=== PATIENT | female | born 1950 | race Caucasian/White ===

== ENCOUNTER → 2017-08-05 | Outpatient (CLI) | payer OTHER ==
[~2017-08-05] MED LIST: CALC-440 PO; CLB200 PO; CLR10 PO; FLUT0.15 NAE; FRRG PO; HYDR-5688 PO; HYDR25TA4 PO; LEVO88TA3 PO; LOSA1TAB PO; PEDICHW50 PO; RTL20 PO; TRIA0.1C55 TOP; XRL10 PO
--- NOTE | 2017-08-05 15:06 | DIAGNOSTIC IMAGING REPORT ---
MRI OF THE LEFT ANKLE AND HINDFOOT WITHOUT CONTRAST CLINICAL HISTORY: Left foot pain. Evaluate for posterior tibial tendon abnormality. No recent trauma. COMPARISON STUDY: Left foot radiographs April 07, 2012. TECHNIQUE: Utilizing a 1.5 Tamy magnet and dedicated coil, multiplanar, multiecho imaging of the left ankle and hindfoot was performed without intravenous or intraarticular contrast. Large [id number]-yzcy coronal T1 and T2 sequences of the entire foot were also obtained. FINDINGS: Note is made of postsurgical findings consistent with fusion of the left first metatarsophalangeal joint. Expected postoperative findings are noted. There is no marrow edema or marrow replacement within the left ankle or hindfoot. Achilles tendon is unremarkable. There is mild plantar calcaneal spurring. There is no MRI evidence of plantar fasciitis. A marker was placed on the skin at site of maximal pain, overlying the plantar medial aspect of the left hindfoot. Talar dome is intact. Flexor, extensor and peroneal tendons are intact. Specifically, the posterior tibial tendon is intact. There is no evidence for significant tendinopathy. Intrinsic ligaments of the left ankle appear intact. No mass or fluid collection is identified. IMPRESSION: 1. No acute abnormality of the left ankle or hindfoot. No abnormality of the posterior tibial tendon. 2. Status post fusion of the left first metatarsophalangeal joint. Expected postoperative findings. Electronically signed by: Anup Nieves M.D. 08/05/2017 3:04 PM Dictated Date/Time: 08/05/2017 12:07 PM
== END | disposition home or self-care (01) ==
LOC: C.MRI 09:40
PROVIDERS: ATTEND Podiatrist Foot & Ankle Surgery
DX: M76.822 Posterior tibial tendinitis, left leg (principal); M66.862 Spontaneous rupture of other tendons, left lower leg; M66.861 Spontaneous rupture of other tendons, right lower leg

== ENCOUNTER 2020-01-05 09:26 | Inpatient (IN) ==
--- NOTE | 2019-12-26 08:09 | History & Physical Report ---
Date of Service December 26, 2019 Assessment & Plan (1) Primary osteoarthritis of right knee: Treatment options discussed. She has failed conservative therapy as above. She has done well with left knee replacement in the past. Risks, benefits and alternatives to surgery including but not limited to infection, DVT, pain, stiffness, need for revision surgery, damage to blood vessels, damage to nerves, PE, , were discussed with the patient and they wish to proceed. Plan will be for right total knee arthroplasty on 01/05/20 at [facility]. Will plan on aspirin 81mg BID x 30 days post operatively. She will plan on outpatient PT post discharge. We will use Prineo/dermabond dressing with stratafix suture for skin closure. All questions answered. History of Present Illness Chief Complaint: Right knee pain Primary Care Provider: Alberto Li MD Patient is a 69 year old female with HTN, ADHD, depression, hypothyroidism presents for ongoing right knee pain. She has past history of left knee replacement and has done well. She has failed conservative measures including antiinflammatories and cortisone injections. She has significant arthritic changes to her right knee. Pain is affecting her ability to carry our leisure activities. She would like to proceed with right TKA. She was originally scheduled for 11/17/19. however was cancelled due to a lung nodule found during preoperative testing. She has had further work up and has been cleared to proceed with her right knee replacement. Patient denies headaches, sweats, fevers, chills, double vision, blurred vision, cough, sore throat, dysphagia, chest pain, sob, wheezing, n/v/d/c, numbness, tingling, fatigue, urinary symptoms, mood disorders. ROS positive for right knee pain and stiffness. Allergies Allergy/AdvReac Type Severity Reaction Status Date / Time adhesive Allergy Unknown contact Verified 12/22/19 15:47 dermatitis nickel Allergy Unknown contact Verified 12/22/19 15:47 dermatitis diphenhydramine AdvReac Unknown worsens Verified 12/22/19 15:47 symptoms oxycodone AdvReac Unknown hallucinati Verified 12/22/19 15:47 ons Metals Allergy Unknown contact Uncoded 12/22/19 15:47 dermatitis Home Medications Home Medications Medication Instructions Recorded Confirmed Type calcium carbonate [Calcium 600] 1,260 mg PO QAM 12/06/19 02/20/20 History hydrochlorothiazide 25 mg PO QAM 10/07/19 12/22/19 History levothyroxine 88 mcg PO QAM 10/07/19 12/22/19 History loratadine [Claritin] 10 mg PO QAM 10/07/19 12/22/19 History losartan 25 mg PO QAM 10/07/19 12/22/19 History methylphenidate HCl [Ritalin] 20 mg PO QAM 10/07/19 12/22/19 History pediatric multivitamin 2 tab PO QAM 10/07/19 12/22/19 History [Flintstones Multivitamin] Past Med/Surg History Medical History ADD (attention deficit disorder) Cancer LUNG NODULES-UNDER OBSERVATION Cardiac murmur HX Depressed High blood pressure Hypothyroidism Migraine HX Obesity Osteoarthritis Psoriasis Surgical History History of anesthesia reaction "SLOW TO WAKE UP" History of arthroscopy of left shoulder History of arthroscopy of right shoulder History of colonoscopy History of foot surgery L X4, R X3 History of gastric bypass WITH CHOLECYSTECTOMY AT SAME TIME History of hand surgery L SMALL BONE OUT AND CARPAL TUNNEL (SAME SURGERY) History of tonsillectomy History of total left knee replacement History of tubal ligation Social History Preferred Language: [place] Communication Ability: Effective Blood Splatter Analyst Required: No Beliefs That Will Affect Care: None Current Living Situation: Spouse and Family Other Information That Helps Us Care for You: No Feels Safe at Home: Yes Safety Concerns: Feels Safe At This Time Smoking Status: Never smoker Do You Dip or Chew Tobacco: No ; Second Hand Exposure: Yes (PARENTS SMOKED) ; Hx Alcohol Use: No Hx Substance Use: No Review of Systems All systems reviewed & are unremarkable except as noted in HPI & below Physical Exam Constitutional: well developed and well nourished; no acute distress Eyes: PERRL, conjunctivae normal, anicteric sclerae ENMT: external ear and nose normal, oropharynx normal Neck: trachea midline, no thyromegaly Respiratory: normal respiratory effort, lungs clear to auscultation Cardiovascular: RRR, no murmur, no edema Musculoskeletal: Right knee: ROM 0-125, mild effusion. Stable to valgus and varus stress tests. Positive Ericka's. Medial joint line tenderness Skin: no rashes, warm and dry Neurologic: patellar DTR's 2+ bilat, sensation intact Psychiatric: A+Ox3, euthymic affect Results & Data Vital Signs (Past 12 Hours) 5'4", 178lbs, BMI of 30.5. BP 130/62 Laboratory Results Right knee: Soky-da-mjlo medial compartment and lateral patellofemoral joint. Periarticular osteophyte formation and subchondral sclerosis. Degenerative changes lateral compartment.
[2019-12-26 10:06] LABS: Basophils # (auto) 0.05 K/uL (0-0.2); Basophils % (auto) 0.9 %; Eosinophils # (auto) 0.06 K/uL (0-0.5); Eosinophils % (auto) 1.1 %; Hematocrit (blood only) 42.5 % (37-47); Hemoglobin 13.9 g/dL (12.0-16.0); Immature Granulocytes # (auto) 0.01 K/uL (0.00-0.02); Immature Granulocytes % (auto) 0.2 %; Lymphocytes # (auto) 1.39 K/uL (1.2-3.4); Lymphocytes % (auto) 24.8 %; Mean Corpuscular Hemoglobin 30.3 pg (25-34); Mean Corpuscular Hgb Conc 32.7 g/dL (32-36); Mean Corpuscular Volume 92.6 fL (80-100); Mean Platelet Volume 11.7 fL (7.4-10.4); Monocytes # (auto) 0.43 K/uL (0.11-0.59); Monocytes % (auto) 7.7 %; Neutrophils # (auto) 3.66 K/uL (1.4-6.5); Neutrophils % (auto) 65.3 %; Platelet Count 289 K/uL (130-400); RDW Standard Deviation 43.5 fL (36.4-46.3); Red Blood Count 4.59 M/uL (4.2-5.4)
[2019-12-26 10:19] LABS: Partial Thromboplastin Time 26.5 Seconds (21.0-31.0)
[2019-12-26 10:39] LABS: Appearance Urine Clear (Clear); Bilirubin Urine Negative (Negative); Blood Urine Negative (Negative); Carbon Dioxide 32 mmol/L (21-32); Chloride 103 mmol/L (98-107); Color Urine Dark Yellow; Glucose Urine UA Negative (Negative); Ketones Urine Negative (Negative); Leukocyte Esterase Urine Negative (Negative); Nitrite Urine Negative (Negative); Potassium 3.2 mmol/L (3.5-5.1); Protein Urine Negative (Negative); Sodium 139 mmol/L (136-145); Specific Gravity Urine 1.023 (1.000-1.030); Urobilinogen Urine Negative (Negative); pH Urine 7.5 (4.5-7.5)
[2019-12-26 10:40] LABS: Albumin Level 3.3 gm/dl (3.4-5.0); BUN Creatinine Ratio 15.1 (10-20); Blood Urea Nitrogen 15 mg/dl (7-18); Calcium 9.1 mg/dl (8.5-10.1); Est GFR (African American) 69.1; Est GFR (Non-African American) 59.6; Glucose 86 mg/dl (70-99)
--- NOTE | 2019-12-27 15:41 | Anesthesiology Consultation ---
Date of Service December 27, 2019 Assessment & Plan (1) Encounter for pre-operative examination: - PCP office visit: 10/31/19: " Patient is medically cleared." Patient subsequently had chest CT, PET CT and pulmonary office visit/preop assessment for further evaluation of pulmonary nodule. For iRBBB on EKG, patient was sent to cardiology for further evaluation. - Cardiology: 11/07/19: "I was originally asked to see her in regard to an abnor mal EKG. Specifically, she has an incomplete right bundle branch block or a right-sided conduction delay. When I review her previous EKG from 2017 she has this same finding and when comparing her most recent EKG to her previous, her EKG is unchanged. She has had no recent cardiac symptoms.. I do not believe any additional cardiac testing is indicated at this time. She needs to have her lung mass worked up further and decisions made regarding further care. Her surgery on her knee should be postponed until after that's completed. I will not plan follow-up unless clinically things change or she needs additional risk assessment." Patient subsequently was evaluated by pulmonary (office visit 11/30/19): "Explained this nodule may represent a malignant nodule though if it is malignant it is likely a slow growing nodule. The likelihood that this nodule spreads is low but not 0. Also explained that due to the size of the nodule, being less than 1 cm, it is likely that if it was attempted to be sampled there be high likelihood that it was nondiagnostic. Plan repeat CT ches t in 6 months from her scan in early November." - Pulmonary note: 12/06/19: "Patient at low risk for pulmonary complications which include atelectasis, pneumonia, need for invasive or non invasive ventilation. If needs invasive ventilation maybe short or senior care, at risk for ischemic brain injury and . No absolute contraindications to surgery. Recommend m aximizing non-narcotic pain regime as much as possible, early ambulation as allowed, flutter and incentive spirometry post op." Chart Review Chart Review: Acceptable Risk for Surgery and Patient NOT seen in Pre Admission Testing History Surgery Operation Date: 01/05/20 11:15 Proposed Procedures p Right Total Knee Arthroplasty - Tomás Garzon MD Height/Weight Height: 5 ft 4 in Weight: 79.832 kg Allergies Allergy/AdvReac Type Severity Reaction Status Date / Time adhesive Allergy Unknown contact Verified 12/22/19 15:47 dermatitis nickel Allergy Unknown contact Verified 12/22/19 15:47 dermatitis diphenhydramine AdvReac Unknown worsens Verified 12/22/19 15:47 symptoms oxycodone AdvReac Unknown hallucinati Verified 12/22/19 15:47 ons Metals Allergy Unknown contact Uncoded 12/22/19 15:47 dermatitis Medications Home Medications Medication Instructions Recorded Confirmed Last Taken calcium carbonate [Calcium 600] 1,260 mg PO QAM 10/07/19 12/22/19 10/07/19 hydrochlorothiazide 25 mg PO QAM 10/07/19 12/22/19 10/07/19 levothyroxine 88 mcg PO QAM 10/07/19 12/22/19 10/07/19 loratadine [Claritin] 10 mg PO QAM 10/07/19 12/22/19 10/07/19 losartan 25 mg PO QAM 10/07/19 12/22/19 10/07/19 methylphenidate HCl [Ritalin] 20 mg PO QAM 10/07/19 12/22/19 10/07/19 pediatric multivitamin 2 tab PO QAM 10/07/19 12/22/19 10/07/19 [Flintstones Multivitamin] Past Medical History Medical History (Updated 12/27/19 @ 15:39 by Sheila Nelson) ADD (attention deficit disorder) Cancer lung nodules (under surveillance) Depressed High blood pressure Hypothyroidism Migraine hx Obesity Osteoarthritis Psoriasis Past Surgical History Surgical History History of anesthesia reaction "SLOW TO WAKE UP" History of arthroscopy of left shoulder History of arthroscopy of right shoulder History of colonoscopy History of foot surgery L X4, R X3 History of gastric bypass WITH CHOLECYSTECTOMY AT SAME TIME History of hand surgery L SMALL BONE OUT AND CARPAL TUNNEL (SAME SURGERY) History of tonsillectomy History of total left knee replacement History of tubal ligation Social History Smoking Status: Never smoker Do You Dip or Chew Tobacco: No Hx Alcohol Use: No Hx Substance Use: No substance use type: does not use Testing Laboratory Results 12/26/19 09:24 12/26/19 09:24 PT 10.0 Seconds (9.0-12.0) 12/26/19 09:24 INR 1.0 (0.9-1.1) 12/26/19 09:24 APTT 26.5 Seconds (21.0-31.0) 12/26/19 09:24 Urine Color Dark Yellow 12/26/19:24 Urine Appearance Clear (Clear) 12/26/19 09:24 Urine pH 7.5 (4.5-7.5) 12/26/19 09:24 Ur Specific [place] 1.023 (1.000-1.030) 12/26/19 09:24 Urine Protein Negative (Negative) 12/26/19 09:24 Urine Glucose (UA) Negative (Negative) 12/26/19:24 Urine Ketones Negative (Negative) 12/26/19:24 Urine Nitrite Negative (Negative) 12/26/19:24 Ur Leukocyte Esterase Negative (Negative) 12/26/19 09:24 Electrocardiogram Date: 10/17/19 SB at 58bpm. iRBBB. Chest X-Ray Date: 10/17/19 Lung volumes are normal. There is no pneumothorax or pleural effusion. There is a 1.6 cm nodular opacity projecting over the right mid to upper lung and the posterior right sixth rib. Left lung is clear. There is no evidence for pulmonary edema. No consolidation is noted. Cardiac size is normal. Mediastinal contours are normal. Possible 1.6 cm right lung nodule. A chest CT is recommended to exclude a pulmonary nodule. Patient had subsequent chest ct done 11/2019* Echocardiogram Date: 01/19/14 LVEF 60-64%. No RWMA. Mild AV sclerosis. Mild AR. Borderline increased cLV wall thickness. Other Testing Chest CT: 11/06/19: Mixed solid and ground-glass nodule in the right upper lobe measuring up to 2 cm. This is concerning for primary lung malignancy. Rec ommend PET-CT or percutaneous biopsy. 11 mm indeterminate renal hypodensity. Recommend MRI of the abdomen with and without IV contrast. *subsequent PET CT scan* PET CT Skull base to mid-thigh: 11/17/19: 2.3 (CC) x 1.0 (AP) x 1.6 (TV) cm ground-glass attenuation pulmonary nodule with a subcentimeter central solid component. FDG PET-CT has low sensitivity for the evaluation of ground-glass attenuation pulmonary nodules. Further evaluation can be obtained with CT- guided biopsy. *Results reviewed by PCP- per note: 11/17/19: "CT-PET looks okay, shows a 0.6cm inside solid part to the lung nodule, but does not "light up". Biopsy still recommended, please keep pulmonary appt."
[~2020-01-05 09:26] MED LIST changes: +ACETAMINOPHEN 500 MG TAB PO SCH; +BUPIVACAINE 0.5 % 5 MG/1 ML PF 10ML VIAL ONE; -CALC-440 PO; +CEFAZOLIN 2000MG 2,000 MG/15 ML SYR IV SCH; -CLB200 PO; -CLR10 PO; +CeleBREX 200 MG CAP PO SCH; -FLUT0.15 NAE; -FRRG PO; +GABAPENTIN 300 MG CAP PO SCH; +GENERAL ORDER PROBLEM SCH; -HYDR-5688 PO; -HYDR25TA4 PO; -LEVO88TA3 PO; -LOSA1TAB PO; +LR 500ML BOLUS, THEN 15ML/HR IV SCH; +MISSING PHYSICIAN SIGNATURE ON ORDER SCH; -PEDICHW50 PO; +ROPIVACAINE 0.5% 5 MG/ML 30 ML VIAL ONE; -RTL20 PO; +TRANEXAMIC ACID 1,000 MG **IV Intra-op IV SCH; +TRANEXAMIC ACID 1,000 MG **IV Pre-op IV SCH; -TRIA0.1C55 TOP; -XRL10 PO; +dexAMETHasone 4 MG TAB PO SCH
[2020-01-05] MEDS ORDERED: LIDOCAINE HCL 2% 2 ML VIAL/AMP(20MG/ML) INFIL ONE (09:38)
[2020-01-05] MEDS ORDERED: PROPOFOL IV EMULSION 10 MG/ML 20 ML VIAL IV ONE (09:38)
[2020-01-05] MEDS ORDERED: MIDAZOLAM HCL 1 MG/ML 2ML VIAL ONE (09:39)
[2020-01-05] MEDS ORDERED: fentaNYL citrate 100 MCG/2 ML VIAL ONE (09:39)
--- NOTE | 2020-01-05 09:57 | History & Physical Bridge Note ---
Date of Service January 05, 2020 History & Physical Bridge Note I have examined the patient, reviewed the History & Physical and in the interval since the performance of the History & Physical I have noted the following changes of clinical significance: no changes noted
[2020-01-05] MEDS ORDERED: CeleBREX 200 MG CAP ONE (10:28)
[2020-01-05] MEDS ORDERED: ACETAMINOPHEN 500 MG TAB ONE (10:28)
[2020-01-05] MEDS ORDERED: dexAMETHasone 4 MG TAB PO ONE (10:28)
[2020-01-05] MEDS ORDERED: GABAPENTIN 300 MG CAP ONE (10:28)
[2020-01-05] MEDS ORDERED: TRANEXAMIC ACID / 0.7% NACL 1000MG/100ML BAG IV ONE (10:29)
[2020-01-05] MEDS ORDERED: BACITRACIN INJ 50,000 UNIT VIAL ONE (10:42)
[2020-01-05] MEDS ORDERED: ATROPINE SULFATE 0.1 MG/ML 10ML SYR IV PRN (11:35)
[2020-01-05] MEDS ORDERED: ePHEDrine sulfate 50 MG/ML AMP IV PRN (11:35)
[2020-01-05] MEDS: ROPIVACAINE 0.5% HCL/PF 150 MG, BUPIVACAINE 0.5% MPF 30 ML, EPINEPHrine 30MG/30ML (OR U... INSTIL SCH ×2 (12:09→12:11)
--- NOTE | 2020-01-05 13:00 | Operative Report ---
Post Operative Report Pre & Post Diagnosis Operation Date: 01/05/20 12:05 Pre-Op Diagnosis: Unilateral Primary Osteoarthritis, Right Knee Post-Op Diagnosis: Unilateral Primary Osteoarthritis, Right Knee I identified the patient and participated in the time-out.: Yes Procedure Operation Date: 01/05/20 12:05 Actual Procedures p Right Total Knee Arthroplasty(Right) - Tomás Garzon MD Surgeon Tomás Garzon MD Research Study Assistant Alberto Diaz PA-C Estimated Blood Loss 20 Findings Consistent with Post-Op Diagnosis Specimens Bone and tissue Drains 2 Hemovac Anesthesia Type MAC Spinal Regional Complications none Disposition Accompanied Patient To Recovery: No Disposition: Recovery Room Indications Patient is a 69-year-old female longstanding lytic change in the right knee. She has severe tricompartmental arthritic change and is failed conservative measures including injection, anti-inflammatories and rehab. She wishes to proceed with right total knee arthroplasty Description of Procedure Risks benefits and alternatives of surgery including but not limited to infection, DVT, pain, stiffness, need for surgery, damage to blood vessels, damage to nerves or risks of anesthesia were discussed with the patient and they wished to proceed. The patient was identified and the laterality was confirmed and marked. They received a preoperative antibiotic as well as a spinal anesthetic and an abductor canal block. A well-padded tourniquet was applied and then the limb was prepped and draped in standard manner with ChloraPrep. The limb was exsanguinated and the tourniquet was inflated. I made a standard anterior incision. I sharply incised the skin then utilized Bovie electrocautery to achieve hemostasis. I made a medial parapatellar arthrotomy and mobilized the patella laterally. I then excised the anterior horns of the medial and lateral meniscus as well as the infrapatellar fat pad. I elevated a portion of the MCL off of the tibia. I then pinned into place a patient-matched distal femoral cutting guide and made my distal femoral resection. I then pinned into place the 5 in 1 femoral cutting guide. I made my anterior, posterior and chamfer cuts. I then excised the cruciates and the remaining portions of the menisci. I then pinned into place a patient- matched tibial cutting guide and made my tibial resection. I then pinned into place the tibial plate a utilizing alignment lili to confirm rotation. I then cut for the post. Utilizing a lamina assistant passenger locomotive engineer and I then removed posterior osteophytes off the femur. I then placed a trial femur into position and cut for the trochlear component. I then sequentially trialed to size the polyethylene until there was good soft tissue balancing and range of motion. I then prepared the patella with a freehand cut utilizing sagittal saw. I sized and drilled for the patella. There was some lateral tracking to the patella. A lateral release was required. All the trial components were removed. The deep tissues were anesthetized with an ortho mix solution. Then with Simplex HV with gentamicin cement, I cemented my definitive components. Definitive components, [employer] [facility] 2: Femur 5 Tibia 4 Poly 11 Patella 29 oval A betadine soak was performed. A deep drain was placed. The arthrotomy was closed with interrupted #1 Vicryl suture subcutaneous tissue was closed with interrupted 2-0 Vicryl suture. The skin was closed with with Prineo except defaults. An Acticoat and Dayanna dressing were placed. Sterile dressings were applied. All needle and sponge counts were correct at the end of the procedure patient was transferred to the PACU in stable condition without apparent complication. The PA-C was necessary for assistance with procedure for assistance in positioning, prepping, draping, retraction and closure. I attest to the content of the Intraoperative Record and any orders documented therein. Any exceptions are noted below.
--- NOTE | 2020-01-05 14:35 | XRay Report ---
RIGHT KNEE 2 VIEWS History: Right total knee arthroplasty. Degenerative arthritis. Postop. FINDINGS: The patient is status post a right total knee arthroplasty. The hardware is intact. No frac ture or dislocation. Surgical drains are in place. IMPRESSION: Right total knee arthroplasty. No evidence for hardware complication. ACT 112: Negative or not required by law. Results electronically sent 01/05/2020 2:34 PM to: Alberto Diaz Electronically signed by: Ji Kramer M.D. 01/05/2020 2:34 PM
[2020-01-05] MEDS ORDERED: HYDROmorphone INJ 0.5 MG/0.5 ML SYR IV PRN (14:40)
[2020-01-05] MEDS ORDERED: METOCLOPRAMIDE HCL INJ 5 MG/ML 2 ML VIAL IV PRN (14:40)
[2020-01-05] MEDS ORDERED: bisacodyL 10 MG SUPP PR PRN (14:40)
[2020-01-05] MEDS ORDERED: ONDANSETRON INJ 2 MG/ML 2 ML VIAL IV PRN (14:40)
[2020-01-05] MEDS ORDERED: MAGNESIUM HYDROXIDE SUSP 30 ML UDC PO PRN (14:40)
[2020-01-05] MEDS ORDERED: NALOXONE HCL 0.4 MG/1 ML VIAL/CARP IV PRN (14:40)
[2020-01-05] MEDS: SODIUM CHLORIDE 0.9% 1000ML 1,000 ML IV SCH ×2 (15:21→23:58)
--- NOTE | 2020-01-05 15:48 | Anesthesiology Progress Note ---
Date of Service January 05, 2020 Anesthesia Post Procedure Vital Signs Vital Signs: Temp Pulse Pulse Pulse Resp BP BP 01/05/20 15:35 36.2 C L 51 L 16 102/64 01/05/20 15:03 36.3 C L 58 L 16 102/65 01/05/20 14:43 36.3 C L 59 L 16 106/66 01/05/20 14:20 36.7 C 59 L 17 114/78 01/05/20 14:10 59 L 17 124/61 01/05/20 14:00 63 16 114/60 01/05/20 13:52 36.6 C 67 12 123/59 L 01/05/20 10:04 36.6 C 66 18 147/82 H Pulse Ox 01/05/20 15:35 94 01/05/20 15:03 91 01/05/20 14:43 95 01/05/20 14:20 99 01/05/20 14:10 99 01/05/20 14:00 100 01/05/20 13:52 99 01/05/20 10:04 98 Transfer of Care Handoff Completed per policy Notes Mental Status: alert / awake / arousable and participated in evaluation Patient Amnestic to Procedure: Yes Nausea / Vomiting: adequately controlled Pain: adequately controlled Airway Patency, RR, SpO2: stable & adequate BP & HR: stable & adequate Hydration State: stable & adequate Neuraxial Anesthesia: was administered and sensory block is resolving Anesthetic Complications: no major complications apparent
[2020-01-05] MEDS: ASPIRIN 81 MG ECTAB PO SCH (20:09)
[2020-01-05] MEDS: DOCUSATE SODIUM 100 MG CAP PO SCH (20:09)
[2020-01-05] MEDS: SENNA 8.6 MG TAB PO SCH (20:09)
[2020-01-05] MEDS: CEFAZOLIN 2000MG 2,000 MG/15 ML SYR IV SCH (20:09)
[2020-01-05] MEDS: CeleBREX 200 MG CAP PO SCH (20:10)
[2020-01-05] MEDS: HYDROCODONE/ACETAMOPHEN 5/325MG TAB PO PRN (20:22)
[2020-01-06] MEDS: CEFAZOLIN 2000MG 2,000 MG/15 ML SYR IV SCH (03:48)
[2020-01-06 05:58] LABS: Hemoglobin 11.3 g/dL (12.0-16.0); Mean Corpuscular Hemoglobin 30.3 pg (25-34); Mean Corpuscular Hgb Conc 33.2 g/dL (32-36); Mean Corpuscular Volume 91.2 fL (80-100); Mean Platelet Volume 11.5 fL (7.4-10.4); Platelet Count 222 K/uL (130-400); RDW Standard Deviation 43.5 fL (36.4-46.3); Red Blood Count 3.73 M/uL (4.2-5.4)
[2020-01-06] MEDS: LEVOTHYROXINE SODIUM 88 MCG TABLET PO SCH (05:59)
[2020-01-06 06:38] LABS: Creatinine Clr Calc Pharmacy 47.8 ml/min; Est GFR (African American) 56.8; Potassium 4.1 mmol/L (3.5-5.1)
--- NOTE | 2020-01-06 07:15 | Orthopedic Progress Note ---
Date of Service January 06, 2020 Assessment & Plan (1) Primary osteoarthritis of right knee: POD#1 Right TKA -Pain management-currently with Celebrex and [place]. Has had past reaction to oxycodone -PT/OT -DVT prophylaxis-ASA 81mg BID, SCDs, TEDs -D/C planning-home with plans on OPPT likely tomorrow AM labs-hemoglobin at 11.3 this morning. Admission and Anticipated Discharge Date Admission Date: January 05, 2020 Subjective Patient is resting in bed comfortably. She notes pain is tolerable at this time. Was having issues with BP overnight being hypotensive. IV fluids were kept running and pressures have normalized. No complaints of chest pain, sob, dizziness, light headed, nausea or vomiting. Review of Systems Review of Systems: All systems reviewed & are unremarkable except as noted in HPI & below Physical Exam Physical Exam: Right knee dressing is c/d/i. Hemovac draining. No calf tenderness. Toes are mobile with good dorsiflexion. Distally n/v status and sensation are intact. Constitutional: well developed and well nourished; no acute distress Results & Data ([facility]) Vital Signs (Past 12 Hours) Vital Signs Temp Pulse Pulse Resp BP Pulse Ox 01/06/20 05:52 59 L 124/62 01/06/20 03:54 36.4 C L 52 L 15 95/59 L 97 01/05/20 23:03 36.4 C L 47 L 15 92/57 L 97 01/05/20 20:19 36.3 C L 49 L 16 102/64 95 Laboratory Results H & H 12/26/19 01/06/20 Range/Units 09:24 05:26 Hgb 13.9 11.3 L (12.0-16.0) g/dL Hct 42.5 34.0 L (37-47) % Coagulation 12/26/19 Range/Units 09:24 INR 1.0 (0.9-1.1)
--- NOTE | 2020-01-06 08:10 | Anesthesiology Progress Note ---
Date of Service January 06, 2020 Anesthesia Post Procedure Vital Signs Vital Signs: Temp Pulse Pulse Pulse Pulse Resp BP 01/06/20 05:52 59 L 124/62 01/06/20 03:54 36.4 C L 52 L 15 95/59 L 01/05/20 23:03 36.4 C L 47 L 15 92/57 L 01/05/20 20:19 36.3 C L 49 L 16 102/64 01/05/20 17:33 36.7 C 51 L 16 102/61 01/05/20 16:40 36.4 C L 56 L 16 113/71 01/05/20 15:35 36.2 C L 51 L 16 102/64 01/05/20 15:03 36.3 C L 58 L 16 102/65 01/05/20 14:43 36.3 C L 59 L 16 106/66 01/05/20 14:20 36.7 C 59 L 17 114/78 01/05/20 14:10 59 L 17 124/61 01/05/20 14:00 63 16 114/60 01/05/20 13:52 36.6 C 67 12 123/59 L 01/05/20 10:04 36.6 C 66 18 BP Pulse Ox 01/06/20 05:52 01/06/20 03:54 97 01/05/20 23:03 97 01/05/20 20:19 95 01/05/20 17:33 94 01/05/20 16:40 98 01/05/20 15:35 94 01/05/20 15:03 91 01/05/20 14:43 95 01/05/20 14:20 99 01/05/20 14:10 99 01/05/20 14:00 100 01/05/20 13:52 99 01/05/20 10:04 147/82 H 98 Notes Mental Status: alert / awake / arousable and participated in evaluation Patient Amnestic to Procedure: Yes Nausea / Vomiting: adequately controlled Pain: adequately controlled Airway Patency, RR, SpO2: stable & adequate BP & HR: stable & adequate Hydration State: stable & adequate Neuraxial Anesthesia: was administered and sensory block resolved Anesthetic Complications: no major complications apparent and Pt Satisfied with anesthetic care
[2020-01-06] MEDS: ASPIRIN 81 MG ECTAB PO SCH ×2 (08:35→20:33)
[2020-01-06] MEDS: METHYLPHENIDATE HCL 10 MG TABLET PO SCH (08:36)
[2020-01-06] MEDS: MULTIVITAMIN TAB PO SCH (08:36)
[2020-01-06] MEDS: FLINTSTONES COMPLETE CHEWABLE TAB PO SCH (08:36)
[2020-01-06] MEDS: DOCUSATE SODIUM 100 MG CAP PO SCH ×2 (08:36→20:33)
[2020-01-06] MEDS: CeleBREX 200 MG CAP PO SCH ×2 (08:37→20:33)
[2020-01-06] MEDS: CALCIUM 600MG + VIT D 400 IU TAB PO SCH (08:37)
[2020-01-06] MEDS: LORATADINE 10 MG TAB PO SCH (08:57)
[2020-01-06] MEDS ORDERED: hydroCHLOROthiazide 25 MG TAB PO SCH (09:00)
[2020-01-06] MEDS ORDERED: LOSARTAN POTASSIUM 25 MG TAB PO SCH (09:00)
[2020-01-06] MEDS: ROPIVACAINE 0.5% HCL/PF 150 MG, BUPIVACAINE 0.5% MPF 30 ML, EPINEPHrine 30MG/30ML (OR U... INSTIL SCH (09:08)
[2020-01-06] MEDS: HYDROCODONE/ACETAMOPHEN 5/325MG TAB PO PRN ×4 (10:51→23:58)
[2020-01-06] MEDS ORDERED: SODIUM CHLORIDE 0.9% 1000ML 1,000 ML IV SCH (11:15)
--- NOTE | 2020-01-06 11:17 | Hospitalist Consultation ---
Date of Consultation January 06, 2020 Assessment & Plan (1) Primary osteoarthritis of right knee: - POD#[address] Garzon - activity and wound care orders as per ortho - pain control with bowel regimen - PT/OT - monitor H/H for acute blood loss anemia and transfuse blood products PRN - EBL 20 cc, drain output 200 cc thus far (2) Hypotension: (3) Bradycardia: -Documented hypotension (systolic BPs in the 90s) and bradycardia (HR in the 50s) overnight -Currently heart rate in the 60s and BP 106/66 during my exam -Hgb stable at 11.3 -Outpatient records reviewed, patient's baseline heart rate is in the 60s -EKG showing unchanged RBBB -Check orthostatic BPs -mild dehydration, anesthesia, pain medications likely all contributing -will give an additional 1 L of NSS -Hold home losartan and HCTZ (4) Acute blood loss anemia: -Preop Hgb 13.9 -> 11.3 today -Stable, no indication for transfusion -Monitor CBC (5) Hypothyroidism: -Continue levothyroxine (6) ADD (attention deficit disorder): -Continue Ritalin (7) High blood pressure: -Typically managed with losartan and HCTZ however holding as above (8) DVT prophylaxis: -Aspirin 81 mg twice daily as per orthopedics Thank you for this consultation. We will follow the patient with you during their hospital stay. You can reach a member of the [facility] Hospitalist Team 25/05 via pager @ [phone]. Supervising Physician Co-Signing Physician Notes Attending addendum The patient was seen and examined in medical floor She is a status post right knee replacement She was noted to have low blood pressure with bradycardia lower 50s and upper 40s without any symptoms Denies any symptoms this morning On examination Lying in bed comfortably Hemodynamically stable with blood pressure on the lower side of systolic 102 Chestclear to auscultate bilaterally HeartS1-S2, regular Abdomenbenign Extremitiesno edema CNSalert, awake and oriented x3 Her labs and imaging studies reviewed Noted to have bradycardia in the past not been taking any beta-andie Hypertension has been improving with intravenous fluid Agree with assessment and plan as outlined above by Angelina España History of Present Illness Reason for Consultation: Hypotension, bradycardia Requesting Physician: Dr. Garzon Attending Physician: Dr. Patria History of Present Illness 69-year-old female who is POD #[address] Garzon. Postoperatively, the patient is doing overall well. Overnight, there was documented hypotension and mild bradycardia. Patient reports that she had some lightheadedness and nausea after working with therapy today. Reports pain is well controlled with current pain medication regimen. Patient denies chest pain, shortness of breath, palpitations. No syncopal events. Denies abdominal pain, nausea, vomiting. Passing flatus however no bowel movement. Urinating without difficulty. Allergies Allergy/AdvReac Type Severity Reaction Status Date / Time adhesive Allergy Unknown contact Verified 01/05/20 09:48 dermatitis nickel Allergy Unknown contact Verified 01/05/20 09:48 dermatitis diphenhydramine AdvReac Unknown worsens Verified 01/05/20 09:48 symptoms oxycodone AdvReac Unknown hallucinati Verified 01/05/20 09:48 ons Metals Allergy Unknown contact Uncoded 01/05/20 09:48 dermatitis Home Medications Home Medications Medication Instructions Recorded Confirmed Type calcium carbonate [Calcium 600] 1,260 mg PO QAM 10/07/19 01/05/20 History hydrochlorothiazide 25 mg PO QAM 10/07/19 01/05/20 History levothyroxine 88 mcg PO QAM 10/07/19 01/05/20 History loratadine [Claritin] 10 mg PO QAM 10/07/19 01/05/20 History losartan 25 mg PO QAM 10/07/19 01/05/20 History methylphenidate HCl [Ritalin] 20 mg PO QAM 10/07/19 01/05/20 History pediatric multivitamin 2 tab PO QAM 10/07/19 01/05/20 History [Flintstones Multivitamin] Patient History Medical History ADD (attention deficit disorder) Cancer lung nodules (under surveillance) Depressed High blood pressure Hypothyroidism Migraine hx Obesity Osteoarthritis Psoriasis Surgical History History of anesthesia reaction "SLOW TO WAKE UP" History of arthroscopy of left shoulder History of arthroscopy of right shoulder History of colonoscopy History of foot surgery L X4, R X3 History of gastric bypass WITH CHOLECYSTECTOMY AT SAME TIME History of hand surgery L SMALL BONE OUT AND CARPAL TUNNEL (SAME SURGERY) History of tonsillectomy History of total left knee replacement History of tubal ligation Family History Grandfather Family history of diabetes mellitus Grandmother Family history of diabetes mellitus Social History Preferred Language: [place] Communication Ability: Effective Social Science Teacher Required: No Beliefs That Will Affect Care: None Current Living Situation: Spouse and Family Other Information That Helps Us Care for You: No Feels Safe at Home: Yes Safety Concerns: Feels Safe At This Time Smoking Status: Never smoker Do You Dip or Chew Tobacco: No ; Second Hand Exposure: Yes (PARENTS SMOKED) ; Hx Alcohol Use: No Hx Substance Use: No Review of Systems Review of Systems: ROS per HPI, all other systems reviewed and negative Physical Exam Constitutional: WD/WN, vitals as above Eyes: PERRL, conjunctivae normal, anicteric sclerae ENMT: external ear and nose normal, oropharynx normal Respiratory: normal respiratory effort, lungs clear to auscultation Cardiovascular: Rate/Rhythm: regular rhythm and + bradycardic Vessels: normal peripheral pulses Extremities: no edema Gastrointestinal (Abdomen): normal bowel sounds, soft, nontender, no hepatosplenomegaly Musculoskeletal: no cyanosis or clubbing, extremities motor strength 5/5 S/p right knee surgery, dressing dry intact, drain in place draining bloody drainage, CSM checks intact to RLE Skin: no rashes, warm and dry Neurologic: PERRL, EOMI, accommodation nl, no face palsy, no dysarthria Psychiatric: A+Ox3, euthymic affect Results & Data ([facility]) Vital Signs (Past 12 Hours) Vital Signs Temp Pulse Pulse Resp BP Pulse Ox 01/06/20 10:15 65 102/62 01/06/20 05:52 59 L 124/62 01/06/20 03:54 36.4 C L 52 L 15 95/59 L 97 Laboratory Results Short CBC 12/26/19 01/06/20 01/06/20 Range/Units 09:24 05:26 05:26 WBC 13.50 H (4.8-10.8) K/uL Hgb 11.3 L (12.0-16.0) g/dL Hct 34.0 L (37-47) % Plt Count 222 (130-400) K/uL BUN 15 27 H (7-18) mg/dl BMP 01/06/20 05:26 Sodium 142 Potassium 4.1 Chloride 110 H Carbon Dioxide 27 BUN 27 H Creatinine 1.14 Glucose 108 H Calcium 8.0 L
--- NOTE | 2020-01-06 15:59 | Electrocardiogram Report ---
Test Reason : Blood Pressure : / mmHG Vent. Rate : 053 BPM Atrial Rate : 053 BPM P-R Int : 188 ms QRS Dur : 094 ms QT Int : 468 ms P-R-T Axes : 065 -13 049 degrees QTc Int : 439 ms Sinus bradycardia Incomplete right bundle branch block Borderline ECG When compared with ECG of 17-OCT-2019 14:15, No significant change was found Confirmed by Otto Cunningham ([id number]) on 01/06/2020 3:59:27 PM Referred By: Tomás Garzon Confirmed By:Otto Cunningham
[2020-01-06] MEDS: SENNA 8.6 MG TAB PO SCH (20:33)
[2020-01-07] MEDS: HYDROCODONE/ACETAMOPHEN 5/325MG TAB PO PRN ×3 (04:22→12:36)
[2020-01-07 05:51] LABS: Hematocrit (blood only) 31.8 % (37-47); Hemoglobin 10.4 g/dL (12.0-16.0); Mean Corpuscular Hemoglobin 29.9 pg (25-34); Mean Corpuscular Hgb Conc 32.7 g/dL (32-36); Mean Corpuscular Volume 91.4 fL (80-100); Mean Platelet Volume 11.8 fL (7.4-10.4); Platelet Count 190 K/uL (130-400); RDW Coefficient of Variation 13.2 % (11.5-14.5); RDW Standard Deviation 44.2 fL (36.4-46.3); Red Blood Count 3.48 M/uL (4.2-5.4); White Blood Count 6.99 K/uL (4.8-10.8)
[2020-01-07] MEDS: LEVOTHYROXINE SODIUM 88 MCG TABLET PO SCH (05:52)
[2020-01-07 06:25] LABS: BUN Creatinine Ratio 23.3 (10-20); Calcium 8.1 mg/dl (8.5-10.1); Creatinine Clr Calc Pharmacy 56.7 ml/min; Est GFR (African American) 69.9; Est GFR (Non-African American) 60.3; Potassium 3.7 mmol/L (3.5-5.1)
[2020-01-07] MEDS: ASPIRIN 81 MG ECTAB PO SCH (08:34)
[2020-01-07] MEDS: METHYLPHENIDATE HCL 10 MG TABLET PO SCH (08:39)
[2020-01-07] MEDS: CALCIUM 600MG + VIT D 400 IU TAB PO SCH (08:40)
[2020-01-07] MEDS: LORATADINE 10 MG TAB PO SCH (08:40)
[2020-01-07] MEDS: FLINTSTONES COMPLETE CHEWABLE TAB PO SCH (08:40)
[2020-01-07] MEDS: CeleBREX 200 MG CAP PO SCH (08:40)
[2020-01-07] MEDS: MULTIVITAMIN TAB PO SCH (08:40)
[2020-01-07] MEDS: DOCUSATE SODIUM 100 MG CAP PO SCH (08:41)
--- NOTE | 2020-01-07 08:49 | Orthopedic Progress Note ---
Date of Service January 07, 2020 Assessment & Plan (1) Primary osteoarthritis of right knee: POD#2 Right TKA -Pain management-currently with [facility]. Has had past reaction to oxycodone -PT/OT -DVT prophylaxis-ASA 81mg BID, SCDs, TEDs- DC ASA and changed to Xarelto due to prior gastric bypass -D/C planning-home with plans on OPPT today Admission and Anticipated Discharge Date Admission Date: January 05, 2020 Subjective Patient is resting in bed comfortably. She just finished with some exercises and has some pain but is tolerable at this time. No complaints of chest pain, sob, dizziness, light headed, nausea or vomiting. Physical Exam Physical Exam: Toes mobile, NVI. Calves soft, non tender. incision clean and dry Results & Data ([facility]) Vital Signs (Past 12 Hours) Vital Signs Temp Pulse Pulse Resp BP Pulse Ox 01/07/20 08:06 36.7 C 54 L 16 139/73 96 01/07/20 00:24 37.2 C 60 15 143/64 H 94
[2020-01-07] MEDS ORDERED: RIVAROXABAN 10 MG TABLET PO SCH (09:00)
--- NOTE | 2020-01-07 11:57 | Hospitalist Progress Note ---
Date of Service January 07, 2020 Assessment & Plan (1) Primary osteoarthritis of right knee: - POD#[address] Garzon Covering well postop Mild drop in H&H due to postoperative blood loss anemia No indication for transfusion (2) Hypotension: Resolved, blood pressure 139/73, patient denies of any discomfort or symptoms of dizzy spell or lightheadedness Patient had episode of hypotension postoperatively possibly secondary to anesthesia, pain medications Vitals stable, Patient can be discharged home today no change in medication required-made HCTZ losartan resumed on discharge Family physician follow-up in a week, [facility] notified, (3) Bradycardia: Baseline bradycardia -Outpatient records reviewed, patient's baseline heart rate is in the 60s -EKG showing unchanged RBBB -She denies of any symptoms of dizzy spell shortness of breath dyspnea on exertion or palpitation Pressure stable No further investigation needed (4) Acute blood loss anemia: -Preop Hgb 13.9 -> 11.3 > 10.4 -Stable, no indication for transfusion - (5) Hypothyroidism: -Continue levothyroxine (6) ADD (attention deficit disorder): -Continue Ritalin (7) High blood pressure: -Brief episode of postoperative hypotension Resolved Patient's out patient medication of losartan HCTZ resumed (8) DVT prophylaxis: - as per orthopedics Thank you for the consultation Patient is medically stable to be discharged home today Admission and Anticipated Discharge Date Admission Date: January 05, 2020 Anticipated date of discharge: 01/07/20 Subjective Patient reports of feeling fine today, Vital stable BP 139/73, heart rate 54 (patient has baseline bradycardia) Does not have any complaint of shortness of breath dyspnea on exertion or chest discomfort With physical therapy on the hallway, had no symptoms of lightheadedness or dizzy spell Patient appears to be medically stable to be discharged home today-as planned by orthopedics team Review of Systems Review of Systems: ROS per HPI, all other systems reviewed and negative Constitutional: no fever, no chills, no fatigue and no weakness Cardiovascular: no dyspnea on exertion and no lightheadedness Physical Exam Constitutional: WD/WN, vitals as above no acute distress Eyes: PERRL, conjunctivae normal, anicteric sclerae ENMT: external ear and nose normal, oropharynx normal Neck: trachea midline, no thyromegaly Respiratory: normal respiratory effort, lungs clear to auscultation Cardiovascular: RRR, no murmur, no edema Gastrointestinal (Abdomen): normal bowel sounds, soft, nontender, no hepatosplenomegaly Musculoskeletal: Status post right knee surgery, surgical site healing well bandage removed, no surrounding redness or swelling noted Neurologic: patellar DTR's 2+ bilat, sensation intact Psychiatric: A+Ox3, euthymic affect Results & Data ([facility]) Vital Signs (Past 12 Hours) Vital Signs Temp Pulse Pulse Resp BP Pulse Ox 01/07/20 08:06 36.7 C 54 L 16 139/73 96 01/07/20 00:24 37.2 C 60 15 143/64 H 94
--- NOTE | 2020-01-07 13:53 | Discharge Summary ---
Date of Service January 07, 2020 Admission HPI Per Admitting Provider Patient is a 69 year old female with HTN, ADHD, depression, hypothyroidism presents for ongoing right knee pain. She has past history of left knee replacement and has done well. She has failed conservative measures including antiinflammatories and cortisone injections. She has significant arthritic changes to her right knee. Pain is affecting her ability to carry our leisure activities. She would like to proceed with right TKA. She was originally scheduled for 11/17/19. however was cancelled due to a lung nodule found during preoperative testing. She has had further work up and has been cleared to proceed with her right knee replacement. Patient denies headaches, sweats, fevers, chills, double vision, blurred vision, cough, sore throat, dysphagia, chest pain, sob, wheezing, n/v/d/c, numbness, tingling, fatigue, urinary symptoms, mood disorders. ROS positive for right knee pain and stiffness. Admission Exam Per Admitting Provider Constitutional: well developed and well nourished; no acute distress Eyes: PERRL, conjunctivae normal, anicteric sclerae ENMT: external ear and nose normal, oropharynx normal Neck: trachea midline, no thyromegaly Respiratory: normal respiratory effort, lungs clear to auscultation Cardiovascular: RRR, no murmur, no edema Musculoskeletal: Right knee: ROM 0-125, mild effusion. Stable to valgus and varus stress tests. Positive Ericka's. Medial joint line tenderness Skin: no rashes, warm and dry Neurologic: patellar DTR's 2+ bilat, sensation intact Psychiatric: A+Ox3, euthymic affect Principal Diagnosis Right knee osteoarthritis, post operative hypotension Discharge Exam Constitutional well developed and well nourished; no acute distress Eyes PERRL, conjunctivae normal, anicteric sclerae ENMT external ear and nose normal, oropharynx normal Neck trachea midline, no thyromegaly Respiratory normal respiratory effort, lungs clear to auscultation Cardiovascular RRR, no murmur, no edema Skin no rashes, warm and dry Neurologic patellar DTR's 2+ bilat, sensation intact Psychiatric A+Ox3, euthymic affect Discharge Data Allergies Allergy/AdvReac Type Severity Reaction Status Date / Time adhesive Allergy Unknown contact Verified 01/05/20 09:48 dermatitis nickel Allergy Unknown contact Verified 01/05/20 09:48 dermatitis diphenhydramine AdvReac Unknown worsens Verified 01/05/20 09:48 symptoms oxycodone AdvReac Unknown hallucinati Verified 01/05/20 09:48 ons Metals Allergy Unknown contact Uncoded 01/05/20 09:48 dermatitis Consultations 01/05/20 14:40 Consult Case Management - Discharge Planning Routine 01/06/20 10:26 Consult Hospitalist Routine Procedures Performed Operation Date: 01/05/20 12:05 Actual Procedures p Right Total Knee Arthroplasty(Right) - Tomás Garzon MD Ordered Studies 01/05/20 05:00 US - OR guided needle placemen Routine Hospital Course (1) Primary osteoarthritis of right knee: Patient presented for same day admission following right total knee arthroplasty on 01/05/20. She tolerated procedure well. Post-operatively, his/her activity was progressed and well tolerated. On POD#1 patient was noted to have significant hypotension and bradycardia with pulse as low as 39. She does have a baseline bradycardia. She was given IV fluids and vitals normalized later in the day and into POD#2. They participated in PT with ambulation distance of 100ft x 1 and 200 feet x 1. ROM of operative knee reached 92 degrees. Labs remained stable- lowest hemoglobin recorded: 10.4, acute blood loss due to surgical loss and likely dilutional effect. Dr. González España of medical service was consulted for medical management during admission. Pain controlled on oral medications. On POD#2 it was noted that patient had been refusing her aspirin post operatively due to history of gastric bypass. She was switched to Xarelto. Please refer to daily progress notes and PT notes for complete details. After exam on 01/07/20, patient was felt to be stable for discharge home with plans on home health therapy. Patient will f/u in the office in about 2 weeks for further evaluation including x-rays and incision check, sooner if having any issues or concerns. Lab Results 12/26/19 12/26/19 12/26/19 Range/Units 09:24 09:24 09:24 WBC 5.60 (4.8-10.8) K/uL RBC 4.59 (4.2-5.4) M/uL Hgb 13.9 (12.0-16.0) g/dL Hct 42.5 (37-47) % MCV 92.6 (80-100) fL MCH 30.3 (25-34) pg MCHC 32.7 (32-36) g/dL RDW Std Deviation 43.5 (36.4-46.3) fL RDW Coeff of Ronald 13.0 (11.5-14.5) % Plt Count 289 (130-400) K/uL MPV 11.7 H (7.4-10.4) fL Immature Gran % (Auto) 0.2 % Neut % (Auto) 65.3 % Lymph % (Auto) 24.8 % [place] % (Auto) 7.7 % Eos % (Auto) 1.1 % Baso % (Auto) 0.9 % Immature Gran # (Auto) 0.01 (0.00-0.02) K/uL Neut # (Auto) 3.66 (1.4-6.5) K/uL Lymph # (Auto) 1.39 (1.2-3.4) K/uL [place] # (Auto) 0.43 (0.11-0.59) K/uL Eos # (Auto) 0.06 (0-0.5) K/uL Baso # (Auto) 0.05 (0-0.2) K/uL PT 10.0 (9.0-12.0) Seconds INR 1.0 (0.9-1.1) APTT 26.5 (21.0-31.0) Seconds PTT Ratio 1.0 Sodium 139 (136-145) mmol/L Potassium 3.2 L (3.5-5.1) mmol/L Chloride 103 (98-107) mmol/L Carbon Dioxide 32 (21-32) mmol/L Anion Gap 4.0 (3-11) BUN 15 (7-18) mg/dl Creatinine 0.97 (0.6-1.2) mg/dl Est Cr Clr Drug Dosing ml/min Est GFR ( Amer) 69.1 Est GFR (Non-Af Amer) 59.6 BUN/Creatinine Ratio 15.1 (10-20) Glucose 86 (70-99) mg/dl Calcium 9.1 (8.5-10.1) mg/dl Albumin 3.3 L (3.4-5.0) gm/dl Urine Color Urine Appearance (Clear) Urine pH (4.5-7.5) Ur Specific [place] (1.000-1.030) Urine Protein (Negative) Urine Glucose (UA) (Negative) Urine Ketones (Negative) Urine Blood (Negative) Urine Nitrite (Negative) Urine Bilirubin (Negative) Urine Urobilinogen (Negative) Ur Leukocyte Esterase (Negative) Blood Type Antibody Screen 12/26/19 01/05/20 01/06/20 Range/Units 09:24 09:56 05:26 WBC 13.50 H (4.8-10.8) K/uL RBC 3.73 L (4.2-5.4) M/uL Hgb 11.3 L (12.0-16.0) g/dL Hct 34.0 L (37-47) % MCV 91.2 (80-100) fL MCH 30.3 (25-34) pg MCHC 33.2 (32-36) g/dL RDW Std Deviation 43.5 (36.4-46.3) fL RDW Coeff of Ronald 13.0 (11.5-14.5) % Plt Count 222 (130-400) K/uL MPV 11.5 H (7.4-10.4) fL Immature Gran % (Auto) % Neut % (Auto) % Lymph % (Auto) % [place] % (Auto) % Eos % (Auto) % Baso % (Auto) % Immature Gran # (Auto) (0.00-0.02) K/uL Neut # (Auto) (1.4-6.5) K/uL Lymph # (Auto) (1.2-3.4) K/uL [place] # (Auto) (0.11-0.59) K/uL Eos # (Auto) (0-0.5) K/uL Baso # (Auto) (0-0.2) K/uL PT (9.0-12.0) Seconds INR (0.9-1.1) APTT (21.0-31.0) Seconds PTT Ratio Sodium (136-145) mmol/L Potassium (3.5-5.1) mmol/L Chloride (98-107) mmol/L Carbon Dioxide (21-32) mmol/L Anion Gap (3-11) BUN (7-18) mg/dl Creatinine (0.6-1.2) mg/dl Est Cr Clr Drug Dosing ml/min Est GFR ( Amer) Est GFR (Non-Af Amer) BUN/Creatinine Ratio (10-20) Glucose (70-99) mg/dl Calcium (8.5-10.1) mg/dl Albumin (3.4-5.0) gm/dl Urine Color Dark Yellow Urine Appearance Clear (Clear) Urine pH 7.5 (4.5-7.5) Ur Specific [place] 1.023 (1.000-1.030) Urine Protein Negative (Negative) Urine Glucose (UA) Negative (Negative) Urine Ketones Negative (Negative) Urine Blood Negative (Negative) Urine Nitrite Negative (Negative) Urine Bilirubin Negative (Negative) Urine Urobilinogen Negative (Negative) Ur Leukocyte Esterase Negative (Negative) Blood Type O Positive Antibody Screen NEGATIVE 01/06/20 01/07/20 01/07/20 Range/Units 05:26 05:16 05:16 WBC 6.99 (4.8-10.8) K/uL RBC 3.48 L (4.2-5.4) M/uL Hgb 10.4 L (12.0-16.0) g/dL Hct 31.8 L (37-47) % MCV 91.4 (80-100) fL MCH 29.9 (25-34) pg MCHC 32.7 (32-36) g/dL RDW Std Deviation 44.2 (36.4-46.3) fL RDW Coeff of Ronald 13.2 (11.5-14.5) % Plt Count 190 (130-400) K/uL MPV 11.8 H (7.4-10.4) fL Immature Gran % (Auto) % Neut % (Auto) % Lymph % (Auto) % [place] % (Auto) % Eos % (Auto) % Baso % (Auto) % Immature Gran # (Auto) (0.00-0.02) K/uL Neut # (Auto) (1.4-6.5) K/uL Lymph # (Auto) (1.2-3.4) K/uL [place] # (Auto) (0.11-0.59) K/uL Eos # (Auto) (0-0.5) K/uL Baso # (Auto) (0-0.2) K/uL PT (9.0-12.0) Seconds INR (0.9-1.1) APTT (21.0-31.0) Seconds PTT Ratio Sodium 142 140 (136-145) mmol/L Potassium 4.1 3.7 (3.5-5.1) mmol/L Chloride 110 H 110 H (98-107) mmol/L Carbon Dioxide 27 25 (21-32) mmol/L Anion Gap 5.0 5.0 (3-11) BUN 27 H 22 H (7-18) mg/dl Creatinine 1.14 0.96 (0.6-1.2) mg/dl Est Cr Clr Drug Dosing 47.8 56.7 ml/min Est GFR ( Amer) 56.8 69.9 Est GFR (Non-Af Amer) 49.0 60.3 BUN/Creatinine Ratio 24.0 H 23.3 H (10-20) Glucose 108 H 100 H (70-99) mg/dl Calcium 8.0 L 8.1 L (8.5-10.1) mg/dl Albumin (3.4-5.0) gm/dl Urine Color Urine Appearance (Clear) Urine pH (4.5-7.5) Ur Specific [place] (1.000-1.030) Urine Protein (Negative) Urine Glucose (UA) (Negative) Urine Ketones (Negative) Urine Blood (Negative) Urine Nitrite (Negative) Urine Bilirubin (Negative) Urine Urobilinogen (Negative) Ur Leukocyte Esterase (Negative) Blood Type Antibody Screen Total Time Total Time Spent Total Time Spent (In Minutes): 20 Discharge Plan Discharge Items Patient Disposition: Home - Self-Care Reason For Visit: Unilateral Primary Osteoarthritis, Right Knee Discharge Diagnosis: s/p right TKA Activity: Per Instructions section Non-emergency contact: Primary Care Provider and Surgeon Call non-emergency contact if: your symptoms worsen, your pain is worsening, your temperature is above 101.5, your wound has increased redness and your wound has increased drainage Follow-up/Referrals: Alberto Li MD [Primary Care Provider] - 01/10/20 10:05 am (Hospital follow- up with family physician within a week) Diet: Regular Addtl Attending Provider Instructions: ACTIVITY RECOMMENDATIONS: SELF CARE INSTRUCTIONS AFTER TOTAL KNEE REPLACEMENT A. You may need to continue a physical therapy program after discharge from the hospital. There are several options available to you. Your doctor will assist you in selecting the best one for you. 1. An out-patient facility 2 to 3 times a week for therapy or home therapy. 2. Continue working on all exercises taught to you in the hospital. Your goals should be to increase bending of your knee to 90 degrees and beyond and to fully straighten your knee. B. You may progress at your own pace from walking with a walker or crutches to a cane; then to no assistive devices. C. Make walking a part of your daily routine. Be up as much as comfortable with rest periods throughout the day. Rest with leg elevation is very important. Use the ice wrap frequently for the first 3-4 weeks. D. There are no restrictions on activities. You may ride in a car, shop, participate in head piece assembler and all social activities. E. Wear the long elastic stockings (JENNIFER hose) 20 hours a day for 2 weeks after surgery. They can be removed several times a day for laundering and for a bath. F. You may shower, no tub baths until cleared by your doctor. SPECIAL CARE INSTRUCTIONS: VERY IMPORTANT TO READ AND REVIEW A. There are a few signs you need to watch for after you are home. Call [facility] if you notice any of the followin. Increased severe knee pain. Some pain is expected especially when you exercise. 2. Increased swelling in your leg or knee; pain or swelling of the calf muscle in either lower leg. 3. Any fluid drainage from the incision. 4. Shortness of breath or chest pain. B. Please call [facility] at if you have any concerns or questions about your operation or recovery. The doctor or his nurse will return your call promptly. C. You must take antibiotics before dental work, bladder, bowel or other surgery. Your doctor will provide you with a permanent care to carry describing this precaution. IMPORTANT: * REMEMBER TO TAKE Xarelto DAILY FOR 4 WEEKS UNLESS OTHERWISE DIRECTED. THIS IS YOUR BLOOD THINNER. * HIGH RISK PATIENTS MAY BE PRESCRIBED A STRONGER BLOOD THINNER. THIS WILL BE PROVIDED AT DISCHARGE. * CALL IF INCREASED PAIN, REDNESS, DRAINAGE OR FEVER GREATER THAT 101. * WEAR JENNIFER HOSE 20 HOURS PER DAY FOR 2 WEEKS. This is a mesh tape dressing that is covered with glue. It should remain in place until the incision is properly healed, usually 10-14 days. This dressing is designed to naturally slough off. You may trim the excess mesh tape as it peels off. Incision may be briefly wet in a shower. Dry immediately by blotting with a clean, dry towel. Do not bath or swim until instructed by your doctor. Do not scratch, rub, or pick at the dressing. Do not apply any topical ointments or lotions until dressing is completely removed and/or instructed by your doctor. There may be a small piece of suture material at one end of your incision. Do not pull or trim this. If it is bothersome or catching on clothing, you may cover it with a band-aid. FOLLOW UP VISIT: If appointment is not already scheduled: Please call [facility] to make a follow-up appointment for 2 weeks after your surgery at . [facility] Provider Instructions: Hospital follow-up with your family physician Dr. Li in a week, [facility] will call you with appointment Pending Studies at Discharge: No Stand-Alone Forms: My [facility], Opioid Pain Management, Smoking Cessation Medications and DC Order Prescriptions: New Xarelto 10 mg Tablet 10 mg PO DAILY 30 Days Qty: 30 RF: 0 hydrocodone-acetaminophen 5-325 mg tablet 1 tab PO Q6H Qty: 30 RF: 0 Continued methylphenidate HCl [Ritalin] 20 mg Tablet 20 mg PO QAM RF: 0 pediatric multivitamin [Flintstones Multivitamin] Tablet,Chewable 2 tab PO QAM RF: 0 calcium carbonate [Calcium 600] 600 mg calcium (1,500 mg) Tablet 1,260 mg PO QAM RF: 0 losartan 25 mg Tablet 25 mg PO QAM RF: 0 hydrochlorothiazide 25 mg Tablet 25 mg PO QAM RF: 0 loratadine [Claritin] 10 mg Tablet 10 mg PO QAM RF: 0 levothyroxine 88 mcg Capsule 88 mcg PO QAM RF: 0 Discharge Orders: Discharge Order (Routine); Ordered 01/07/20 Ordered By: Trena Galan/Other Patient Handouts: DVT Prevent Admission Data Admit Date/Time: 01/05/20 13:58 Attending Provider: Tomás Garzon Admit Provider: Tomás Garzon Primary Care Provider: Alberto Li Other Providers: [facility],Home Healthcare ; Alberto Chang ; González España ; Alyson Montoya ; Angelina Manzanares ; Gita Sosa ; Evelina Priest ; Aditya Talbot ; Lavon Man ; Isai Purvis ; Lauren Tobias ; Arelis Gutierrez ; Diandra Huggins ; Giles Sevilla ; Aaron Wilson ; Dionne Suarez ; Kevyn Hand ; Emelina Bagley ; Aaron Jacome ; Joan Rosa ; Yousuf Cobb ; Daja Deal I. ; Loy Bill ; Thanh Cannon Other Interventions: Discharge Summary Assessment (RN) Last Done: 01/07/20 08:28 DC Date/Time DO NOT enter until pt leaves facility: 01/07/20 13:05
== END 2020-01-07 13:05 | disposition home or self-care (01) | DRG 470 ==
LOC: ASU 09:26 → 3E 13:58